=== PATIENT | female | born 1995 | race Caucasian/White ===

== ENCOUNTER 2024-01-30 20:40 | Emergency (ER) | payer BC, SELFPAY ==
--- NOTE | ~2024-01-30 | CT_ITS ---
EXAMINATION: CT abdomen pelvis w con DATE: 01/30/2024 22:43 INDICATION: RUQ pain TECHNIQUE: Computed tomography (CT) of the abdomen and pelvis was performed with 100 mL Omnipaque-350 intravenous contrast. Automated exposure control and iterative reconstruction technique were employe d. The dose-length product was 1083.72 mGy-cm. COMPARISON: None. FINDINGS: Lower thorax: Unremarkable Liver: Normal. Biliary/Gallbladder: Gallbladder is normal. No bile duct dilation. Pancreas: No mass or duct dilation. Spleen: Normal. Adrenals:No mass. Kidneys: No suspicious mass, obstructing stone, or hydronephrosis. GI tract: No small or large bowel dilation. Normal appendix. Mesentery/Peritoneum: No ascites, mass, or free air. Retroperitoneum: No mass. Pelvis: Pelvic organs are within normal limits. Soft Tissues: Soft tissues and body wall unremarkable. Bones: No acute osseous finding. IMPRESSION: No acute abdominopelvic process detected. Reviewed, dictated and finalized at location K.
[2024-01-30 20:52] VITALS: BP 133/83; PULSE 114; RESP 16; TEMP 36.2; O2SAT 100
[2024-01-30 21:20] LABS: Basophils Percent Auto 0.4 % (0.2-1.2); Eosinophils Absolute Auto 0.1 K/mm3 (0-0.3); Eosinophils Percent Auto 0.8 % (0-4.4); Hematocrit 50.8 % (37.0-47.0); Hemoglobin 16.9 g/dL (12.0-15.0); Immature Granulocyte Absolute 0.04 K/mm3 (0.00-0.031); Immature Granulocyte Percent A 0.4 % (0-0.5); Lymphocytes Absolute Auto 1.25 K/mm3 (0.9-3.2); Lymphocytes Percent Auto 12.6 % (18.3-44.2); Mean Corpuscular HGB Conc 33.3 g/dl (32-36); Mean Corpuscular Hemoglobin 29.6 pg (26-34); Mean Platelet Volume 9.5 fl (7.4-10.4); Monocytes Absolute Auto 0.4 K/mm3 (0.1-0.6); Monocytes Percent Auto 3.5 % (2.6-8.5); Neutrophils Absolute Auto 8.2 K/mm3 (1.3-6.7); Neutrophils Percent Auto 82.3 % (45.5-73.1); Platelet Count Result 312 k/mm3 (150-375); Red Blood Count 5.71 M/mm3 (4.2-5.4); Red Cell Distribution Width 12.9 % (11.5-14.5)
[2024-01-30 21:22] LABS: Appearance Urine Clear (Clear); Bilirubin Urine Negative (Negative); Blood Urine Negative (Negative); Color Urine Yellow (Yellow); Glucose Urine UA Negative (Negative); Ketones Urine Negative (Negative); Leukocyte Esterase Ur Negative LEU/UL (Negative); Nitrate Urine Negative (Negative); Protein Urine Negative (Negative); Specific Grav Ur 1.021 (1.001-1.035); Urobilinogen Urine 0.2 mg/dL (<2.0); pH Urine 5.5 (5.0-9.0)
[2024-01-30 21:31] LABS: Add Urine Microscopic? NO; Alanine Aminotransferase 21 U/L (6-35); Albumin Level 4.4 g/dL (3.5-5.1); Alkaline Phosphatase 58 U/L (38-126); Anion Gap 8 mmol/L (8-16); Aspartate Amino Transferase 23 U/L (14-36); Bilirubin,Total 0.7 mg/dL (0.2-1.3); Blood Urea Nitrogen 12 mg/dL (7-17); Calcium 8.8 mg/dL (8.4-10.2); Carbon Dioxide 24 mmol/L (22-30); Chloride 104 mmol/L (98-107); Estimated CRCL calculation 132 ml/min; Estimated Glomerular Filt Rate > 60; Glucose 110 mg/dL (65-110); Lipase 69 U/L (23-300); Potassium 3.8 mmol/L (3.4-5.0); Sodium 136 mmol/L (137-145)
[2024-01-30 21:34] VITALS: BP 118/93; PULSE 96; RESP 19; TEMP 36.7; O2SAT 100
--- NOTE | 2024-01-30 22:20 | ED.GENADULT ---
HPI - General Adult General Chief complaint: Abdominal Pain Stated complaint: R sided abd pain/V/D Time Seen by Provider: 01/30/24 22:10 Source: patient Mode of arrival: ambulatory Limitations: no limitations History of Present Illness HPI narrative: This is a 28-year-old female who presents to the ED with chief complaint of right upper quadrant pain for the past couple of weeks and worse today. Reports she woke up this morning with pain in the right upper quadrant and it has been constant since onset today. Reports she is supposed to get an ultrasound this week for the right upper quadrant is they are working up gallbladder inflammation with PCP. Reports multiple episodes of vomiting today, feels nauseous whenever she takes anything by mouth. Also reports several episodes of loose stools today. Denies fevers, chills, chest pain, shortness of breath, cough, back pain, urinary symptoms. Related Data Allergies Allergy/AdvReac Type Severity Reaction Status Date / Time hydrochlorothiazide Allergy Flushing Verified 01/30/24 20:52 Penicillins Allergy Hives Verified 01/30/24 20:52 Sulfa (Sulfonamide Allergy Flushing Verified 01/30/24 20:52 Antibiotics) Review of Systems Review of Systems: All systems as dictated in HPI Exam Narrative: GENERAL: Well-appearing, well-nourished, and in no acute distress. HEAD: Normocephalic, atraumatic. EYES: PERRLA and EOMI. ENT: Nares clear, no rhinorrhea or epistaxis. Mucous membranes moist. Oropharynx without tonsillar hypertrophy exudate or other lesions. NECK: Supple. No adenopathy or masses. CHEST: No respiratory distress. Clear to auscultation. No wheezes rales or rhonchi HEART: Regular rate and rhythm. No murmur heard. Normal peripheral pulses. ABDOMEN: Tenderness to the right upper quadrant. soft, otherwise nontender, nondistended, normal active bowel sounds. MSK: Normal range of motion. No edema. SKIN: Warm, dry, no rash. NEURO: Alert and oriented x3. No focal deficits. PSYCH: Normal mood and affect. Course Vital Signs Vital signs: Vital Signs Temperature 97.2 F L 01/30/24 20:52 Pulse Rate 114 H 01/30/24 20:52 Respiratory Rate 16 01/30/24 20:52 Blood Pressure 133/83 01/30/24 20:52 Pulse Oximetry 100 01/30/24 20:52 Temperature 98.1 F 01/30/24 21:34 Pulse Rate 74 01/30/24 23:41 Respiratory Rate 15 01/30/24 23:41 Blood Pressure 112/64 01/30/24 23:41 Pulse Oximetry 100 01/30/24 23:41 Medical Decision Making MDM Narrative Medical decision making narrative: This is a 28-year-old female who presents to the ED with chief complaint of right upper quadrant pain ongoing for several weeks and worse today. Vitals are normal. Exam or he does show mild right upper quadrant tenderness. Negative Lu sign. Of lab work were shows normal white count and normal CMP. Urinalysis is negative. CT abdomen and pelvis with IV contrast shows no acute process. She has improved with fluids, pain meds and nausea meds here. She is scheduled for right upper quadrant ultrasound this week and I advised her to continue with this appointment and to follow up with PCP. Pt will be discharged in stable condition. Return precautions given and supportive measures discussed. Pt is understanding and agreeable with plan for discharge and follow-up with PCP. Vital Signs Vital Signs: Vital Signs Temperature 97.2 F L 01/30/24 20:52 Pulse Rate 114 H 01/30/24 20:52 Respiratory Rate 16 01/30/24 20:52 Blood Pressure 133/83 01/30/24 20:52 Pulse Oximetry 100 01/30/24 20:52 Temperature 98.1 F 01/30/24 21:34 Pulse Rate 74 01/30/24 23:41 Respiratory Rate 15 01/30/24 23:41 Blood Pressure 112/64 01/30/24 23:41 Pulse Oximetry 100 01/30/24 23:41 Lab Data 01/30/24 21:03 01/30/24 21:03 Labs: Lab Results 01/30/24 Range/Units 21:03 WBC 10.0 (4.5-10.0) K/mm3 RBC 5.71 H (4.2-5.4) M/mm3
[2024-01-30] MEDS: SODIUM CHLORIDE 0.9% IV 1,000 ML 999 ML IV CONT (22:26)
[2024-01-30] MEDS: ONDANSETRON INJ 4 MG/2 ML VIAL IV PUSH (22:27)
[2024-01-30] MEDS: MORPHINE SULFATE (*CRX) 4 MG/ML INJ IV PUSH (22:27)
[2024-01-30 22:31] VITALS: BP 104/75; PULSE 85; RESP 13; O2SAT 100
[2024-01-30 23:41] VITALS: BP 112/64; PULSE 74; RESP 15; O2SAT 100
== END 2024-01-30 23:42 | disposition home or self-care (01) ==
LOC: ANHED 23:28
PROVIDERS: Emergency Medicine; Emergency Provider Physician Assistant
DX: R10.11 Right upper quadrant pain (principal)
CPT/HCPCS: 36415; 74177; 80053; 81003; 81025; 83690; 85025; 96361; 96374; 96375; 99284; J2270; J2405; J7030; Q9967